=== PATIENT | male | born 1980 | race Caucasian/White ===

== ENCOUNTER 2017-11-30 08:10 | Outpatient (CLI) | payer OTHER | END 2017-11-30 08:26 | disposition home or self-care (01) | LOC: LAB 08:10 | DX: J10.00 Influenza due to other identified influenza virus with unspecified type of pneumonia (principal); J11.1 Influenza due to unidentified influenza virus with other respiratory manifestations ==

== ENCOUNTER 2020-07-07 07:45 | Day surgery (SDC) | payer OTHER | END 2020-07-07 11:05 | disposition home or self-care (01) | LOC: AMB-ENDOS 07:45 | PROVIDERS: ATTEND Colon & Rectal Surgery | DX: D13.1 Benign neoplasm of stomach (principal); K63.5 Polyp of colon; K44.9 Diaphragmatic hernia without obstruction or gangrene; K64.0 First degree hemorrhoids; Z20.828 Contact with and (suspected) exposure to other viral communicable diseases ==

== ENCOUNTER → 2020-07-08 | Outpatient (CLI) | payer OTHER | END | disposition home or self-care (01) | LOC: PPH VACUNA 16:40 | DX: Z23 Encounter for immunization (principal) ==

== ENCOUNTER 2020-07-22 09:59 | Outpatient (CLI) | payer OTHER | END 2020-07-22 10:06 | disposition home or self-care (01) | LOC: RAD 09:59 | PROVIDERS: ATTEND Internal Medicine Geriatric Medicine | DX: I11.9 Hypertensive heart disease without heart failure (principal) ==

== ENCOUNTER → 2021-04-24 12:42 | Outpatient (CLI) | payer OTHER | END | disposition home or self-care (01) | LOC: LAB 12:42 | PROVIDERS: ATTEND Emergency Medicine Pediatric Emergency Medicine | DX: Z03.818 Encounter for observation for suspected exposure to other biological agents ruled out (principal) ==

== ENCOUNTER 2021-05-28 10:45 | Outpatient (CLI) | payer OTHER | END 2021-05-28 11:02 | disposition home or self-care (01) | LOC: LAB 10:45 | DX: Z03.818 Encounter for observation for suspected exposure to other biological agents ruled out (principal) ==

== ENCOUNTER 2021-06-05 10:00 | Outpatient (CLI) | payer OTHER | END 2021-06-05 12:11 | disposition home or self-care (01) | LOC: ASH CLINIC 10:00 | PROVIDERS: ATTEND General Practice | DX: Z23 Encounter for immunization (principal); U07.1 COVID-19 ==

== ENCOUNTER 2021-09-16 08:00 | Outpatient (CLI) | payer OTHER | END 2021-09-16 08:30 | disposition home or self-care (01) | LOC: PPH VACUNA 08:00 | PROVIDERS: ATTEND Emergency Medicine Pediatric Emergency Medicine | DX: Z23 Encounter for immunization (principal) ==

== ENCOUNTER 2023-02-01 15:10 | Outpatient (CLI) | payer OTHER | END 2023-02-01 15:40 | disposition home or self-care (01) | LOC: RAD 15:10 | PROVIDERS: ATTEND Colon & Rectal Surgery | DX: J18.0 Bronchopneumonia, unspecified organism (principal) ==

== ENCOUNTER 2023-06-17 01:30 | Outpatient (CLI) | payer OTHER | END 2023-06-17 01:40 | disposition home or self-care (01) | LOC: PPH VACUNA 01:30 | PROVIDERS: ATTEND Emergency Medicine Pediatric Emergency Medicine | DX: Z23 Encounter for immunization (principal) | CPT/HCPCS: 90686; G0008 ==

== ENCOUNTER 2025-09-03 14:00 | Outpatient (CLI) | payer OTHER | END 2025-09-03 14:10 | disposition home or self-care (01) | LOC: PPH VACUNA 14:00 | PROVIDERS: ATTEND Emergency Medicine Pediatric Emergency Medicine | DX: Z23 Encounter for immunization (principal) ==

== ENCOUNTER 2025-09-16 06:00 | Day surgery (SDC) | payer OTHER ==
[2025-09-16] MEDS ORDERED: DIPHENHYDRAMINE HCL 50 MG/ML VIAL 1ML IV ONE (09:30)
[2025-09-16] MEDS ORDERED: FLUMAZENIL 0.5 MG/5 ML ML IV ONE (09:30)
[2025-09-16] MEDS ORDERED: MIDAZOLAM HCL 2 MG/2 ML VIAL IV ONE (09:30)
[2025-09-16] MEDS ORDERED: fentaNYL CITRATE 50 MCG/ML AMPUL IV ONE (09:30)
[2025-09-16] MEDS ORDERED: NALOXONE HCL 0.4 MG/ML AMPUL IV ONE (10:00)
== END 2025-09-16 10:30 | disposition home or self-care (01) ==
LOC: AMB-ENDOS 06:00
PROVIDERS: ATTEND Surgery
DX: K63.5 Polyp of colon (principal); K44.9 Diaphragmatic hernia without obstruction or gangrene; R10.13 Epigastric pain